=== PATIENT | female | born 1940 | race Caucasian/White ===

== ENCOUNTER → 2016-03-02 | Outpatient (CLI) | payer MEDICARE, BC ==
[~2016-03-02] MED LIST: BIOTIN 800 MCG-1 TAB PO; CELEBREX 200MG200 MG PO; CENTRUM SILVER1 EAC1 PO; DHA PO; HCTZ 25MG25 MG PO; QUALITY CHOICE600 M1 PO; SYNTHROID0.125 MG/T PO; TOVIAZ4 MG PO; VITAMIN D400 UNIT PO; VITAMIN E200 UNI2 PO; ZESTRIL5 M1 PO
== END ==
LOC: LAB 09:35
DX: E55.9 Vitamin D deficiency, unspecified (principal)

== ENCOUNTER → 2016-03-13 | Outpatient (CLI) | payer MEDICARE, BC ==
[2015-07-19 15:14] VITALS: BP 131/64
== END | disposition home or self-care (01) ==
LOC: PT 13:45

== ENCOUNTER → 2016-05-25 | Outpatient (CLI) | payer MEDICARE, BC | LOC: LAB 09:10 | DX: E55.9 Vitamin D deficiency, unspecified (principal) ==

== ENCOUNTER → 2016-07-30 | Outpatient (CLI) | payer MEDICARE, BC ==
[2015-07-19 15:14] VITALS: BP 131/64
== END ==
LOC: CARDREHAB 08:53
DX: G47.33 Obstructive sleep apnea (adult) (pediatric) (principal); R51 Headache; R53.83 Other fatigue; R06.83 Snoring; G47.36 Sleep related hypoventilation in conditions classified elsewhere; E66.9 Obesity, unspecified
CPT/HCPCS: G0399

== ENCOUNTER → 2016-12-17 | Outpatient (CLI) | payer MEDICARE, BC ==
[2015-07-19 15:14] VITALS: BP 131/64
[2016-12-17 14:56] LABS: EOS # 0.3 (0.04-0.40); EOS % 3.4 % (1.0-5.0); HEMATOCRIT 45.7 % (37.0-47.0); HEMOGLOBIN 14.9 g/dL (12.5-16.0); MEAN CELL VOLUME 100 fl (78-100); MEAN CORPUSCULAR HEMOGLOBIN 33 pg (27-31); MEAN CORPUSCULAR HGB CONC 33 g/dL (33-37); MEAN PLATELET VOLUME 10.1 fl (7.4-10.4); MONO # 0.7 (0.20-0.80); NEU # 4.5 (1.40-6.50); PLATELET COUNT 269 K/mm3 (130-400); RED BLOOD COUNT 4.56 M/mm3 (4.10-5.30); RED CELL DISTRIBUTION WIDTH 13.3 % (11.5-14.5); WHITE BLOOD COUNT 7.4 K/mm3 (4.8-10.8)
[2016-12-17 15:40] LABS: ALBUMIN 4.1 g/dL (3.5-5.0); BUN/CREATININE RATIO 26.4 (6.0-26.0); CALCIUM 10.8 mg/dL (8.4-10.2); TOTAL BILIRUBIN 0.8 mg/dL (0.2-1.3); TOTAL PROTEIN 7.2 g/dL (6.3-8.2)
[2016-12-17 16:11] LABS: ERYTHROCYTE SEDIMENTATION RATE 14 mm/hr (0-30)
== END ==
LOC: LAB 14:24
PROVIDERS: Internal Medicine
DX: I10 Essential (primary) hypertension (principal); E78.2 Mixed hyperlipidemia; Z12.11 Encounter for screening for malignant neoplasm of colon; E03.9 Hypothyroidism, unspecified

== ENCOUNTER → 2016-12-21 | Outpatient (CLI) | payer MEDICARE, BC ==
[2015-07-19 15:14] VITALS: BP 131/64
== END ==
LOC: LAB 16:00
DX: Z12.11 Encounter for screening for malignant neoplasm of colon (principal)

== ENCOUNTER → 2017-02-08 | Outpatient (CLI) | payer MEDICARE, BC ==
[2015-07-19 15:14] VITALS: BP 131/64
== END ==
LOC: LAB 10:58
DX: M79.676 Pain in unspecified toe(s) (principal)

== ENCOUNTER 2017-02-23 10:28 | Emergency (ER) | payer MEDICARE, BC ==
[~2017-02-23] VITALS: Ht 157.5 cm; Wt 82.7 kg
[2017-02-23 11:16] LABS: EOS # 0.1 (0.04-0.40); EOS % 0.6 % (1.0-5.0); HEMATOCRIT 49.5 % (37.0-47.0); HEMOGLOBIN 15.9 g/dL (12.5-16.0); LYMPH# 2.7 (1.50-4.00); MEAN CELL VOLUME 97 fl (78-100); MEAN CORPUSCULAR HEMOGLOBIN 31 pg (27-31); MEAN CORPUSCULAR HGB CONC 32 g/dL (33-37); MEAN PLATELET VOLUME 10.5 fl (7.4-10.4); MONO # 0.8 (0.20-0.80); PLATELET COUNT 294 K/mm3 (130-400); RED BLOOD COUNT 5.08 M/mm3 (4.10-5.30); RED CELL DISTRIBUTION WIDTH 13.6 % (11.5-14.5); WHITE BLOOD COUNT 13.7 K/mm3 (4.8-10.8)
[2017-02-23 11:18] LABS: NEU # 10.1 (1.40-6.50)
[2017-02-23 11:30] LABS: ALBUMIN 4.4 g/dL (3.5-5.0); BUN/CREATININE RATIO 33.9 (6.0-26.0); CALCIUM 11.3 mg/dL (8.4-10.2); TOTAL BILIRUBIN 1.2 mg/dL (0.2-1.3); TOTAL PROTEIN 7.9 g/dL (6.3-8.2)
[2017-02-23 13:47] LABS: URINE APPEARANCE HAZY; URINE BILIRUBIN NEGATIVE (NEGATIVE); URINE BLOOD NEGATIVE (NEGATIVE); URINE COLOR YELLOW; URINE GLUCOSE NEGATIVE (NEGATIVE); URINE KETONE 2+ (NEGATIVE); URINE LEUKOCYTE ESTERASE NEGATIVE (NEGATIVE); URINE MUCUS PRESENT (NOT PRESENT); URINE NITRATE NEGATIVE (NEGATIVE); URINE PROTEIN(semi-quant) TRACE mg/dL (NEGATIVE); URINE UROBILINOGEN NORMAL (NORMAL)
[2017-02-23 16:38] VITALS: BP 137/75
[2017-02-23] MEDS ORDERED: ZOFRAN ODT8 M1 PO (16:43)
== END 2017-02-23 16:59 | disposition home or self-care (01) ==
LOC: ED 10:28
PROVIDERS: Physician Assistant
DX: K52.9 Noninfective gastroenteritis and colitis, unspecified (principal); I10 Essential (primary) hypertension; E21.3 Hyperparathyroidism, unspecified; E03.9 Hypothyroidism, unspecified; G47.33 Obstructive sleep apnea (adult) (pediatric); M81.0 Age-related osteoporosis without current pathological fracture; Z88.5 Allergy status to narcotic agent; Z88.2 Allergy status to sulfonamides
CPT/HCPCS: J2405; J2550; J7030; J7040

== ENCOUNTER 2017-05-04 14:00 | Outpatient (RCR) | payer MEDICARE, BC ==
[~2017-05-04 14:00] MED LIST changes: +ZOFRAN ODT8 M1 PO
== END 2017-05-04 14:30 | disposition home or self-care (01) ==
LOC: PT 14:00
DX: M54.2 Cervicalgia (principal); Z88.2 Allergy status to sulfonamides

== ENCOUNTER → 2017-06-21 | Outpatient (CLI) | payer MEDICARE, BC | LOC: RAD 06-14 13:00 | DX: G31.9 Degenerative disease of nervous system, unspecified (principal); I67.82 Cerebral ischemia; Z88.2 Allergy status to sulfonamides | CPT/HCPCS: A9585 ==

== ENCOUNTER → 2017-10-11 | Outpatient (CLI) | payer MEDICARE, BC | LOC: RAD 09:22 | DX: M51.36 Other intervertebral disc degeneration, lumbar region (principal) ==

== ENCOUNTER 2017-10-28 14:00 | Outpatient (RCR) | payer MEDICARE, BC | END 2017-10-28 14:30 | disposition home or self-care (01) | LOC: PT 14:00 | DX: M54.32 Sciatica, left side (principal); M19.90 Unspecified osteoarthritis, unspecified site | CPT/HCPCS: G8978-GP; G8979-GP ==

== ENCOUNTER → 2017-11-09 | Outpatient (CLI) | payer MEDICARE, BC | LOC: MAMMO 14:19 | DX: Z12.31 Encounter for screening mammogram for malignant neoplasm of breast (principal) ==

== ENCOUNTER → 2017-11-25 | Outpatient (CLI) | payer MEDICARE, BC | LOC: RAD 14:57 | DX: M19.011 Primary osteoarthritis, right shoulder (principal) ==

== ENCOUNTER → 2017-12-23 | Outpatient (CLI) | payer MEDICARE, BC ==
[2017-12-23 13:57] LABS: BASO # 0.1 (0.02-0.10); EOS # 0.4 (0.04-0.40); HEMATOCRIT 46.1 % (37.0-47.0); HEMOGLOBIN 14.6 g/dL (12.5-16.0); LYMPH# 2.6 (1.50-4.00); MEAN CELL VOLUME 100 fl (78-100); MEAN CORPUSCULAR HEMOGLOBIN 32 pg (27-31); MEAN CORPUSCULAR HGB CONC 32 g/dL (33-37); MEAN PLATELET VOLUME 10.5 fl (7.4-10.4); MONO # 0.7 (0.20-0.80); PLATELET COUNT 241 K/mm3 (130-400); RED BLOOD COUNT 4.59 M/mm3 (4.10-5.30); RED CELL DISTRIBUTION WIDTH 13.5 % (11.5-14.5); WHITE BLOOD COUNT 7.7 K/mm3 (4.8-10.8)
[2017-12-23 16:03] LABS: ERYTHROCYTE SEDIMENTATION RATE 10 mm/hr (0-30)
[2017-12-23 17:22] LABS: ALBUMIN 4.1 g/dL (3.5-5.0); CALCIUM 10.5 mg/dL (8.4-10.2); POTASSIUM 4.3 mmol/L (3.6-5.0); TOTAL BILIRUBIN 0.6 mg/dL (0.2-1.3); TOTAL PROTEIN 6.9 g/dL (6.3-8.2)
== END ==
LOC: LAB 13:30
PROVIDERS: Internal Medicine
DX: Z12.11 Encounter for screening for malignant neoplasm of colon (principal); I10 Essential (primary) hypertension; E03.9 Hypothyroidism, unspecified; E78.2 Mixed hyperlipidemia

== ENCOUNTER 2017-12-31 13:30 | Outpatient (RCR) | payer MEDICARE, BC | END 2017-12-31 14:00 | disposition home or self-care (01) | LOC: PT 13:30 | DX: M25.511 Pain in right shoulder (principal); W10.1XXD Fall (on)(from) sidewalk curb, subsequent encounter | CPT/HCPCS: G8985-GP ==

== ENCOUNTER 2018-02-03 15:00 | Outpatient (RCR) | payer MEDICARE, BC | END 2018-02-06 | disposition home or self-care (01) | LOC: PT | DX: M50.30 Other cervical disc degeneration, unspecified cervical region (principal); R29.898 Other symptoms and signs involving the musculoskeletal system; M15.9 Polyosteoarthritis, unspecified | CPT/HCPCS: G8981-GP; G8982-GP ==

== ENCOUNTER → 2018-03-17 | Outpatient (CLI) | payer MEDICARE, BC ==
[2018-03-18 00:44] LABS: PTH,INTACT 110.9 pg/mL (6.6-88.9)
[2018-03-18 02:13] LABS: CALCIUM, IONIZED, SERUM 1.44 mmol/L (1.19-1.41)
== END ==
LOC: LAB 13:59
PROVIDERS: Nurse Practitioner Family
DX: E89.0 Postprocedural hypothyroidism (principal); Z90.89 Acquired absence of other organs

== ENCOUNTER → 2018-03-28 | Outpatient (CLI) | payer MEDICARE, BC | LOC: LAB 15:12 | PROVIDERS: Nurse Practitioner Family | DX: Z86.39 Personal history of other endocrine, nutritional and metabolic disease (principal) ==

== ENCOUNTER 2018-07-24 11:01 | Emergency (ER) | payer MEDICARE, BC ==
[2018-07-24] MEDS ORDERED: ASPIR LOW81 MG PO (11:07)
[2018-07-24] MEDS ORDERED: ULTRAM50 M1 PO (11:35)
[2018-07-24] MEDS ORDERED: PREMIERPRO RX5 MG/GM OP (11:35)
[2018-07-24 11:51] VITALS: BP 104/47
== END 2018-07-24 11:43 | disposition home or self-care (01) ==
LOC: ED 11:01
DX: S05.32XA Ocular laceration without prolapse or loss of intraocular tissue, left eye, initial encounter (principal); I10 Essential (primary) hypertension; E07.9 Disorder of thyroid, unspecified; Z79.82 Long term (current) use of aspirin; W45.8XXA Other foreign body or object entering through skin, initial encounter; W22.8XXA Striking against or struck by other objects, initial encounter

== ENCOUNTER → 2018-08-01 | Outpatient (CLI) | payer MEDICARE, BC ==
[2018-07-24 11:51] VITALS: BP 104/47
[~2018-08-01] MED LIST changes: +ASPIR LOW81 MG PO; +PREMIERPRO RX5 MG/GM OP; +ULTRAM50 M1 PO
[2018-08-01 13:30] LABS: BASO # 0.1 (0.02-0.10); EOS # 0.5 (0.04-0.40); HEMATOCRIT 46.6 % (37.0-47.0); HEMOGLOBIN 14.4 g/dL (12.5-16.0); LYMPH# 2.3 (1.50-4.00); MEAN CELL VOLUME 100 fl (78-100); MEAN CORPUSCULAR HEMOGLOBIN 31 pg (27-31); MEAN CORPUSCULAR HGB CONC 31 g/dL (33-37); MEAN PLATELET VOLUME 11.6 fl (7.4-10.4); MONO # 0.7 (0.20-0.80); NEU # 4.9 (1.40-6.50); PLATELET COUNT 247 K/mm3 (130-400); RED BLOOD COUNT 4.65 M/mm3 (4.10-5.30); RED CELL DISTRIBUTION WIDTH 14.5 % (11.5-14.5); WHITE BLOOD COUNT 8.5 K/mm3 (4.8-10.8)
[2018-08-01 14:02] LABS: ALBUMIN 3.8 g/dL (3.4-4.8); CALCIUM 10.3 mg/dL (8.3-10.5); POTASSIUM 4.1 mmol/L (3.5-5.1); TOTAL BILIRUBIN 0.7 mg/dL (0.2-1.2); TOTAL PROTEIN 6.4 g/dL (6.2-8.1)
== END ==
LOC: LAB 07:05
PROVIDERS: Internal Medicine
DX: I10 Essential (primary) hypertension (principal); K90.9 Intestinal malabsorption, unspecified; E03.9 Hypothyroidism, unspecified

== ENCOUNTER → 2018-09-15 | Outpatient (CLI) | payer MEDICARE, BC | LOC: RAD 16:05 | DX: M25.562 Pain in left knee (principal); Z96.652 Presence of left artificial knee joint ==

== ENCOUNTER → 2018-11-15 | Outpatient (CLI) | payer MEDICARE, BC | LOC: MAMMO 13:27 | DX: Z12.31 Encounter for screening mammogram for malignant neoplasm of breast (principal) ==

== ENCOUNTER → 2019-01-06 | Outpatient (CLI) | payer MEDICARE, BC | LOC: RAD 16:01 | DX: M19.072 Primary osteoarthritis, left ankle and foot (principal); Z96.662 Presence of left artificial ankle joint ==

== ENCOUNTER → 2019-02-04 | Outpatient (CLI) | payer MEDICARE, BC | LOC: RAD 09:30 | DX: M85.872 Other specified disorders of bone density and structure, left ankle and foot (principal); S99.922A Unspecified injury of left foot, initial encounter ==

== ENCOUNTER → 2019-02-07 | Outpatient (CLI) | payer MEDICARE, BC ==
[2019-02-07 09:10] LABS: BASO # 0.1 (0.02-0.10); EOS # 0.5 (0.04-0.40); EOS % 6.8 % (1.0-5.0); HEMATOCRIT 45.7 % (37.0-47.0); HEMOGLOBIN 14.5 g/dL (12.5-16.0); LYMPH# 1.9 (1.50-4.00); MEAN CELL VOLUME 100 fl (78-100); MEAN CORPUSCULAR HEMOGLOBIN 32 pg (27-31); MEAN CORPUSCULAR HGB CONC 32 g/dL (33-37); MEAN PLATELET VOLUME 10.1 fl (7.4-10.4); MONO # 0.5 (0.20-0.80); NEU # 3.6 (1.40-6.50); PLATELET COUNT 246 K/mm3 (130-400); RED BLOOD COUNT 4.59 M/mm3 (4.10-5.30); WHITE BLOOD COUNT 6.6 K/mm3 (4.8-10.8)
[2019-02-07 09:19] LABS: POTASSIUM 4.5 mmol/L (3.5-5.1)
[2019-02-07 09:20] LABS: ALBUMIN 4.1 g/dL (3.4-4.8)
[2019-02-07 09:21] LABS: CALCIUM 10.3 mg/dL (8.3-10.5)
[2019-02-07 09:22] LABS: TOTAL PROTEIN 6.9 g/dL (6.2-8.1)
[2019-02-07 09:24] LABS: TOTAL BILIRUBIN 0.8 mg/dL (0.2-1.2)
== END ==
LOC: LAB 08:54
PROVIDERS: Internal Medicine
DX: K90.9 Intestinal malabsorption, unspecified (principal); I10 Essential (primary) hypertension; E78.2 Mixed hyperlipidemia; E03.9 Hypothyroidism, unspecified

== ENCOUNTER → 2019-02-16 | Outpatient (CLI) | payer MEDICARE, BC | LOC: RAD 15:28 | DX: M48.07 Spinal stenosis, lumbosacral region (principal); M51.16 Intervertebral disc disorders with radiculopathy, lumbar region ==

== ENCOUNTER 2019-04-19 16:00 | Outpatient (RCR) | payer MEDICARE, BC | END 2019-04-19 16:30 | disposition still patient (30) | LOC: PT 16:00 | DX: M48.061 Spinal stenosis, lumbar region without neurogenic claudication (principal); M54.16 Radiculopathy, lumbar region ==

== ENCOUNTER → 2019-05-08 | Outpatient (CLI) | payer MEDICARE, BC ==
[2019-05-08 15:43] LABS: PH-URINE 5.5 (5.0 - 8.0); URINE APPEARANCE HAZY; URINE BILIRUBIN NEGATIVE (NEGATIVE); URINE BLOOD TRACE (NEGATIVE); URINE COLOR YELLOW; URINE GLUCOSE NEGATIVE (NEGATIVE); URINE KETONE NEGATIVE (NEGATIVE); URINE LEUKOCYTE ESTERASE TRACE (NEGATIVE); URINE NITRATE NEGATIVE (NEGATIVE); URINE PROTEIN(semi-quant) NEGATIVE (NEGATIVE); URINE UROBILINOGEN NORMAL (NORMAL)
== END ==
LOC: LAB 14:48
PROVIDERS: Internal Medicine
DX: N30.00 Acute cystitis without hematuria (principal)

== ENCOUNTER → 2019-08-08 | Outpatient (CLI) | payer MEDICARE, BC ==
[2019-08-08 14:51] LABS: EOS # 0.4 (0.04-0.40); EOS % 5.9 % (1.0-5.0); HEMATOCRIT 45.4 % (37.0-47.0); HEMOGLOBIN 14.6 g/dL (12.5-16.0); LYMPH# 2.2 (1.50-4.00); MEAN CELL VOLUME 99 fl (78-100); MEAN CORPUSCULAR HEMOGLOBIN 32 pg (27-31); MEAN CORPUSCULAR HGB CONC 32 g/dL (33-37); MEAN PLATELET VOLUME 10.3 fl (7.4-10.4); MONO # 0.6 (0.20-0.80); NEU # 3.7 (1.40-6.50); PLATELET COUNT 219 K/mm3 (130-400); RED BLOOD COUNT 4.57 M/mm3 (4.10-5.30); RED CELL DISTRIBUTION WIDTH 13.4 % (11.5-14.5); WHITE BLOOD COUNT 6.9 K/mm3 (4.8-10.8)
[2019-08-08 15:06] LABS: ALBUMIN 4.3 g/dL (3.4-4.8); POTASSIUM 4.5 mmol/L (3.5-5.1)
[2019-08-08 15:07] LABS: CALCIUM 10.7 mg/dL (8.3-10.5)
[2019-08-08 15:09] LABS: TOTAL PROTEIN 7.1 g/dL (6.2-8.1)
[2019-08-08 15:10] LABS: TOTAL BILIRUBIN 0.7 mg/dL (0.2-1.2)
== END ==
LOC: LAB 14:09
PROVIDERS: Internal Medicine
DX: K90.9 Intestinal malabsorption, unspecified (principal); I10 Essential (primary) hypertension; E78.2 Mixed hyperlipidemia; E03.9 Hypothyroidism, unspecified

== ENCOUNTER → 2019-08-25 | Outpatient (CLI) | payer MEDICARE, BC | LOC: RAD 13:23 | DX: M50.30 Other cervical disc degeneration, unspecified cervical region (principal) ==

== ENCOUNTER → 2019-09-01 | Outpatient (CLI) | payer MEDICARE, BC ==
[2019-09-01 08:49] LABS: POTASSIUM 4.7 mmol/L (3.5-5.1)
[2019-09-01 08:50] LABS: CALCIUM 10.5 mg/dL (8.3-10.5)
== END ==
LOC: LAB 08:28
PROVIDERS: Internal Medicine
DX: M47.812 Spondylosis without myelopathy or radiculopathy, cervical region (principal); M27.2 Inflammatory conditions of jaws
CPT/HCPCS: Q9967

== ENCOUNTER → 2019-09-07 | Outpatient (CLI) | payer MEDICARE, BC | LOC: RAD 07:43 | DX: M50.30 Other cervical disc degeneration, unspecified cervical region (principal); M48.02 Spinal stenosis, cervical region ==

== ENCOUNTER → 2019-09-26 15:00 | Outpatient (RCR) | payer MEDICARE, BC | END | disposition still patient (30) | LOC: PT 09-11 13:48 | DX: M48.02 Spinal stenosis, cervical region (principal); M50.122 Cervical disc disorder at C5-C6 level with radiculopathy; M54.81 Occipital neuralgia ==

== ENCOUNTER → 2019-11-14 | Outpatient (CLI) | payer MEDICARE, BC | LOC: LAB 12:08 | DX: I10 Essential (primary) hypertension (principal); E03.9 Hypothyroidism, unspecified ==

== ENCOUNTER → 2019-11-22 | Outpatient (CLI) | payer MEDICARE, BC | LOC: MAMMO 10:00 | DX: Z12.31 Encounter for screening mammogram for malignant neoplasm of breast (principal) ==

== ENCOUNTER → 2020-03-12 | Outpatient (CLI) | payer MEDICARE, BC ==
[2020-01-14 15:15] VITALS: BP 116/65
[~2020-03-12] MED LIST changes: +AMOXICILLIN AND1 TA2 PO; +FISH OIL CONCE1 EACH PO; +LEVOTHYROXINE100 MC1 PO; +VITAMIN B COMPL1 SGL PO; +VITAMIN D375 MCG PO
[2020-03-12 08:28] LABS: CALCIUM 10.2 mg/dL (8.3-10.5)
== END ==
LOC: RAD 07:53 → LAB 07:53 → RAD 09:00
PROVIDERS: Internal Medicine
DX: E83.52 Hypercalcemia (principal); R51.9 Headache, unspecified
CPT/HCPCS: Q9967

== ENCOUNTER → 2020-04-12 | Outpatient (CLI) | payer MEDICARE, BC ==
[2020-01-14 15:15] VITALS: BP 116/65
[~2020-04-12] MED LIST changes: +ACETAMINOPHEN500 M5 PO; +ADULT ASPIRIN R81 MG PO; +BIOTIN1000 MC1 PO; +MIRALAX17 GM PO; +NATURE'S BLEND400 IU PO; +NORCO 325 MG-51 TA1 PO; +TYMLOS1.56 ML SQ; +VITAMIN B122500 MC1 PO; +VITAMIN C500 M7 PO; +VITAMIN D325 MC8 PO; +VITAMIN E200 UNIT PO; +ZOFRAN ODT4 MG PO
[2020-04-12 15:54] LABS: EOS # 0.3 (0.04-0.40); EOS % 4.2 % (1.0-5.0); HEMATOCRIT 43.8 % (37.0-47.0); HEMOGLOBIN 13.5 g/dL (12.5-16.0); LYMPH# 2.5 (1.50-4.00); MEAN CELL VOLUME 101 fl (78-100); MEAN CORPUSCULAR HEMOGLOBIN 31 pg (27-31); MEAN CORPUSCULAR HGB CONC 31 g/dL (33-37); MEAN PLATELET VOLUME 9.7 fl (7.4-10.4); MONO # 0.6 (0.20-0.80); NEU # 3.5 (1.40-6.50); PLATELET COUNT 247 K/mm3 (130-400); RED BLOOD COUNT 4.36 M/mm3 (4.10-5.30); RED CELL DISTRIBUTION WIDTH 13.5 % (11.5-14.5); WHITE BLOOD COUNT 6.9 K/mm3 (4.8-10.8)
[2020-04-12 16:08] LABS: ALBUMIN 3.9 g/dL (3.4-4.8); POTASSIUM 4.1 mmol/L (3.5-5.1)
[2020-04-12 16:09] LABS: CALCIUM 10.2 mg/dL (8.3-10.5)
[2020-04-12 16:11] LABS: TOTAL PROTEIN 6.6 g/dL (6.2-8.1)
[2020-04-12 16:12] LABS: TOTAL BILIRUBIN 0.6 mg/dL (0.2-1.2)
[2020-04-13 19:27] LABS: PTH,INTACT 74.2 pg/mL (6.6-88.9)
== END ==
LOC: LAB 15:43
PROVIDERS: Internal Medicine
DX: I10 Essential (primary) hypertension (principal); E78.2 Mixed hyperlipidemia; E03.9 Hypothyroidism, unspecified; M81.0 Age-related osteoporosis without current pathological fracture; E21.0 Primary hyperparathyroidism

== ENCOUNTER 2020-05-15 15:02 | Emergency (ER) | payer MEDICARE, BC ==
[~2020-05-15 15:02] MED LIST changes: -ACETAMINOPHEN500 M5 PO; -ADULT ASPIRIN R81 MG PO; -BIOTIN1000 MC1 PO; -MIRALAX17 GM PO; -NATURE'S BLEND400 IU PO; -NORCO 325 MG-51 TA1 PO; -TYMLOS1.56 ML SQ; -VITAMIN B122500 MC1 PO; -VITAMIN C500 M7 PO; -VITAMIN D325 MC8 PO; -VITAMIN E200 UNIT PO; -ZOFRAN ODT4 MG PO
[2020-05-15] MEDS ORDERED: TYMLOS1.56 ML SQ (15:24)
[2020-05-15 15:33] LABS: EOS # 0.3 (0.04-0.40); EOS % 4.3 % (1.0-5.0); HEMATOCRIT 44.2 % (37.0-47.0); HEMOGLOBIN 14.1 g/dL (12.5-16.0); LYMPH# 2.6 (1.50-4.00); MEAN CELL VOLUME 99 fl (78-100); MEAN CORPUSCULAR HEMOGLOBIN 32 pg (27-31); MEAN CORPUSCULAR HGB CONC 32 g/dL (33-37); MONO # 0.5 (0.20-0.80); NEU # 2.9 (1.40-6.50); PLATELET COUNT 236 K/mm3 (130-400); RED BLOOD COUNT 4.47 M/mm3 (4.10-5.30); RED CELL DISTRIBUTION WIDTH 13.6 % (11.5-14.5); WHITE BLOOD COUNT 6.3 K/mm3 (4.8-10.8)
[2020-05-15 15:42] LABS: ALBUMIN 4.1 g/dL (3.4-4.8)
[2020-05-15 15:43] LABS: SODIUM 142 mmol/L (136-145)
[2020-05-15 15:44] LABS: CALCIUM 10.5 mg/dL (8.3-10.5)
[2020-05-15 15:45] LABS: GLUCOSE 83 mg/dL (65-105); TOTAL PROTEIN 6.9 g/dL (6.2-8.1)
[2020-05-15 15:46] LABS: CARBON DIOXIDE 26 mmol/L (23-31)
[2020-05-15 15:47] LABS: TOTAL BILIRUBIN 0.4 mg/dL (0.2-1.2)
[2020-05-15 15:50] LABS: AST-SGOT 21 U/L (5-34)
[2020-05-15 15:51] LABS: ALT/SGPT 15 U/L (0-55)
[2020-05-15 16:04] LABS: TROPONIN-I < 0.03 ng/mL (<0.030)
[2020-05-15 17:35] VITALS: BP 154/68
== END 2020-05-15 17:35 | disposition home or self-care (01) ==
LOC: ED 15:02
PROVIDERS: Nurse Practitioner
DX: M79.10 Myalgia, unspecified site (principal); I10 Essential (primary) hypertension; Z88.2 Allergy status to sulfonamides; Z88.6 Allergy status to analgesic agent

== ENCOUNTER 2020-07-07 04:45 | Emergency (ER) | payer MEDICARE, BC ==
[~2020-07-07 04:45] MED LIST changes: +TYMLOS1.56 ML SQ
[2020-07-07] MEDS ORDERED: ACETAMINOPHEN500 M5 PO (05:19)
[2020-07-07] MEDS ORDERED: VITAMIN C500 M7 PO (05:19)
[2020-07-07] MEDS ORDERED: ADULT ASPIRIN R81 MG PO (05:20)
[2020-07-07] MEDS ORDERED: BIOTIN1000 MC1 PO (05:20)
[2020-07-07] MEDS ORDERED: NORCO 325 MG-51 TA1 PO (05:22)
[2020-07-07] MEDS ORDERED: ZOFRAN ODT4 MG PO (05:23)
[2020-07-07] MEDS ORDERED: MIRALAX17 GM PO (05:23)
[2020-07-07] MEDS ORDERED: VITAMIN B122500 MC1 PO (05:24)
[2020-07-07] MEDS ORDERED: VITAMIN D325 MC8 PO (05:25)
[2020-07-07] MEDS ORDERED: NATURE'S BLEND400 IU PO (05:25)
[2020-07-07] MEDS ORDERED: VITAMIN E200 UNIT PO (05:26)
[2020-07-07 05:38] LABS: BASO # 0.05 (0.02-0.10); EOS # 0.47 (0.04-0.40); EOS % 6.4 % (1.0-5.0); HEMATOCRIT 42.7 % (37.0-47.0); HEMOGLOBIN 13.8 g/dL (12.5-16.0); LYMPH# 2.37 (1.50-4.00); MEAN CELL VOLUME 99 fl (78-100); MEAN CORPUSCULAR HEMOGLOBIN 32 pg (27-31); MEAN CORPUSCULAR HGB CONC 32 g/dL (33-37); MEAN PLATELET VOLUME 10.4 fl (7.4-10.4); MONO # 0.52 (0.20-0.80); NEU # 3.93 (1.40-6.50); PLATELET COUNT 202 K/mm3 (130-400); RED BLOOD COUNT 4.31 M/mm3 (4.10-5.30); RED CELL DISTRIBUTION WIDTH 13.8 % (11.5-14.5); WHITE BLOOD COUNT 7.4 K/mm3 (4.8-10.8)
[2020-07-07 05:43] LABS: CALCIUM 8.3 mg/dL (8.3-10.5)
[2020-07-07 08:04] VITALS: BP 138/74
== END 2020-07-07 08:00 | disposition home or self-care (01) ==
LOC: ED 04:45
PROVIDERS: Physician Assistant
DX: R06.02 Shortness of breath (principal); I10 Essential (primary) hypertension; E03.9 Hypothyroidism, unspecified; Z88.1 Allergy status to other antibiotic agents; Z88.2 Allergy status to sulfonamides; Z88.5 Allergy status to narcotic agent; Z88.8 Allergy status to other drugs, medicaments and biological substances; Z79.890 Hormone replacement therapy; Z79.899 Other long term (current) drug therapy
CPT/HCPCS: Q9967

== ENCOUNTER → 2020-07-09 | Outpatient (CLI) | payer MEDICARE, BC ==
[2020-07-07 08:04] VITALS: BP 138/74
[~2020-07-09] MED LIST changes: +ACETAMINOPHEN500 M5 PO; +ADULT ASPIRIN R81 MG PO; +BIOTIN1000 MC1 PO; +MIRALAX17 GM PO; +NATURE'S BLEND400 IU PO; +NORCO 325 MG-51 TA1 PO; +VITAMIN B122500 MC1 PO; +VITAMIN C500 M7 PO; +VITAMIN D325 MC8 PO; +VITAMIN E200 UNIT PO; +ZOFRAN ODT4 MG PO
== END ==
LOC: LAB 14:11
DX: E21.0 Primary hyperparathyroidism (principal)

== ENCOUNTER → 2020-07-26 | Outpatient (CLI) | payer MEDICARE, BC ==
[2020-07-07 08:04] VITALS: BP 138/74
[2020-07-26 11:04] LABS: BASO # 0.07 (0.02-0.10); EOS % 4.6 % (1.0-5.0); HEMATOCRIT 44.6 % (37.0-47.0); HEMOGLOBIN 14.2 g/dL (12.5-16.0); LYMPH# 2.54 (1.50-4.00); MEAN CELL VOLUME 100 fl (78-100); MEAN CORPUSCULAR HEMOGLOBIN 32 pg (27-31); MEAN CORPUSCULAR HGB CONC 32 g/dL (33-37); MEAN PLATELET VOLUME 9.8 fl (7.4-10.4); MONO # 0.56 (0.20-0.80); NEU # 5.06 (1.40-6.50); PLATELET COUNT 232 K/mm3 (130-400); RED BLOOD COUNT 4.47 M/mm3 (4.10-5.30); RED CELL DISTRIBUTION WIDTH 13.4 % (11.5-14.5); WHITE BLOOD COUNT 8.7 K/mm3 (4.8-10.8)
[2020-07-26 11:44] LABS: POTASSIUM 4.4 mmol/L (3.5-5.1)
[2020-07-26 11:45] LABS: CALCIUM 9.2 mg/dL (8.3-10.5)
[2020-07-26 11:46] LABS: TOTAL PROTEIN 6.9 g/dL (6.2-8.1)
[2020-07-26 11:48] LABS: TOTAL BILIRUBIN 0.6 mg/dL (0.2-1.2)
== END ==
LOC: LAB 10:51
PROVIDERS: Internal Medicine
DX: E21.0 Primary hyperparathyroidism (principal)

== ENCOUNTER → 2020-10-01 | Outpatient (CLI) | payer MEDICARE, BC | LOC: LAB 13:44 | DX: E03.9 Hypothyroidism, unspecified (principal) ==

== ENCOUNTER → 2020-10-21 | Outpatient (CLI) | payer MEDICARE, BC ==
[2020-10-21 16:10] LABS: BASO # 0.07 (0.02-0.10); EOS # 0.29 (0.04-0.40); EOS % 3.6 % (1.0-5.0); HEMATOCRIT 45.8 % (37.0-47.0); HEMOGLOBIN 14.5 g/dL (12.5-16.0); MEAN CELL VOLUME 100 fl (78-100); MEAN CORPUSCULAR HEMOGLOBIN 32 pg (27-31); MEAN CORPUSCULAR HGB CONC 32 g/dL (33-37); MEAN PLATELET VOLUME 9.8 fl (7.4-10.4); NEU # 4.61 (1.40-6.50); PLATELET COUNT 264 K/mm3 (130-400); RED BLOOD COUNT 4.56 M/mm3 (4.10-5.30); RED CELL DISTRIBUTION WIDTH 13.4 % (11.5-14.5); WHITE BLOOD COUNT 8.1 K/mm3 (4.8-10.8)
[2020-10-21 16:19] LABS: ALBUMIN 4.1 g/dL (3.4-4.8); POTASSIUM 4.2 mmol/L (3.5-5.1)
[2020-10-21 16:22] LABS: TOTAL PROTEIN 7.1 g/dL (6.2-8.1)
[2020-10-21 16:24] LABS: TOTAL BILIRUBIN 0.8 mg/dL (0.2-1.2)
[2020-10-21 16:28] LABS: MAGNESIUM 1.91 mg/dL (1.60-2.60)
[2020-10-21 17:45] LABS: ERYTHROCYTE SEDIMENTATION RATE 25 mm/hr (0-30)
== END ==
LOC: LAB 15:55
PROVIDERS: Internal Medicine
DX: I47.1 Supraventricular tachycardia (principal)

== ENCOUNTER 2020-10-31 13:48 | Outpatient (RCR) | payer MEDICARE, BC | END 2021-01-29 | disposition home or self-care (01) | LOC: PT | DX: M76.31 Iliotibial band syndrome, right leg (principal) ==

== ENCOUNTER → 2020-11-04 | Outpatient (CLI) | payer MEDICARE, BC | LOC: AMSURD 15:44 | DX: I47.1 Supraventricular tachycardia (principal) ==

== ENCOUNTER → 2021-01-10 | Outpatient (CLI) | payer MEDICARE, BC ==
[2021-01-10 08:25] LABS: ALBUMIN 3.9 g/dL (3.4-4.8); POTASSIUM 4.2 mmol/L (3.5-5.1)
[2021-01-10 08:26] LABS: CALCIUM 9.1 mg/dL (8.3-10.5)
[2021-01-10 08:28] LABS: TOTAL PROTEIN 6.3 g/dL (6.2-8.1)
[2021-01-10 08:29] LABS: TOTAL BILIRUBIN 0.7 mg/dL (0.2-1.2)
[2021-01-10 16:23] LABS: PTH,INTACT 53.2 pg/mL (6.6-88.9)
[2021-01-13 16:24] LABS: CALCIUM, IONIZED, SERUM 1.37 mmol/L (1.19-1.41)
== END ==
LOC: LAB 07:57
PROVIDERS: Internal Medicine
DX: M81.0 Age-related osteoporosis without current pathological fracture (principal); E83.52 Hypercalcemia

== ENCOUNTER 2021-02-13 14:11 | Outpatient (RCR) | payer MEDICARE, BC ==
[~2021-02-13] VITALS: Ht 157.5 cm; Wt 81.8 kg
[2021-02-13 14:25] VITALS: BP 120/78
[2021-02-13] MEDS ORDERED: CALCIUM500 M1 PO (14:34)
== END 2021-03-24 | disposition home or self-care (01) ==
LOC: AMSURD
DX: Z51.81 Encounter for therapeutic drug level monitoring (principal)
CPT/HCPCS: J0897

== ENCOUNTER → 2021-03-14 | Outpatient (CLI) | payer MEDICARE, BC ==
[~2021-03-14] MED LIST changes: +CALCIUM500 M1 PO
[2021-03-14 10:18] LABS: POTASSIUM 3.8 mmol/L (3.5-5.1)
[2021-03-14 10:19] LABS: CALCIUM 9.4 mg/dL (8.3-10.5)
[2021-03-14 10:21] LABS: TOTAL PROTEIN 6.3 g/dL (6.2-8.1)
== END ==
LOC: LAB 08:28
PROVIDERS: Internal Medicine
DX: I10 Essential (primary) hypertension (principal); E78.2 Mixed hyperlipidemia; E03.9 Hypothyroidism, unspecified

== ENCOUNTER 2021-03-31 09:48 | Emergency (ER) | payer MEDICARE, BC ==
[~2021-03-31] VITALS: Ht 157.5 cm; Wt 85.0 kg
[2021-03-31 10:58] LABS: ALBUMIN 4.5 g/dL (3.4-4.8); POTASSIUM 4.6 mmol/L (3.5-5.1)
[2021-03-31 11:00] LABS: CALCIUM 9.8 mg/dL (8.3-10.5)
[2021-03-31 11:01] LABS: TOTAL PROTEIN 7.4 g/dL (6.2-8.1)
[2021-03-31 11:03] LABS: TOTAL BILIRUBIN 0.7 mg/dL (0.2-1.2)
[2021-03-31 11:09] LABS: BASO # 0.06 K/mm3 (0.02-0.10); EOS # 0.23 K/mm3 (0.04-0.40); EOS % 2.9 % (1.0-5.0); HEMATOCRIT 49.5 % (37.0-47.0); HEMOGLOBIN 15.9 g/dL (12.5-16.0); LYMPH# 2.01 K/mm3 (1.50-4.00); MEAN CELL VOLUME 102 fl (78-100); MEAN CORPUSCULAR HEMOGLOBIN 33 pg (27-31); MEAN CORPUSCULAR HGB CONC 32 g/dL (33-37); MEAN PLATELET VOLUME 10.5 fl (7.4-10.4); MONO # 0.56 K/mm3 (0.20-0.80); NEU # 5.02 K/mm3 (1.40-6.50); PLATELET COUNT 195 K/mm3 (130-400); RED BLOOD COUNT 4.87 M/mm3 (4.10-5.30); RED CELL DISTRIBUTION WIDTH 12.5 % (11.5-14.5); WHITE BLOOD COUNT 7.9 K/mm3 (4.8-10.8)
[2021-03-31 12:26] LABS: PH-URINE 6.5 (5.0 - 8.0); URINE APPEARANCE CLEAR; URINE COLOR YELLOW
[2021-03-31 12:27] LABS: URINE BILIRUBIN NEGATIVE (NEGATIVE); URINE BLOOD NEGATIVE (NEGATIVE); URINE GLUCOSE NEGATIVE (NEGATIVE); URINE KETONE NEGATIVE (NEGATIVE); URINE LEUKOCYTE ESTERASE NEGATIVE (NEGATIVE); URINE NITRATE NEGATIVE (NEGATIVE); URINE PROTEIN(semi-quant) TRACE (NEGATIVE); URINE UROBILINOGEN NORMAL (NORMAL); URINE WBC 0-1 /hpf (0-3)
[2021-03-31] MEDS ORDERED: HYDROCORTISON28.4 GM TP (12:29)
[2021-03-31] MEDS ORDERED: IBU800 M1 PO (12:30)
[2021-03-31] MEDS ORDERED: MUPIROCIN2% TP (12:31)
[2021-03-31] MEDS ORDERED: LEVOTHYROXINE125 MCG PO (12:31)
[2021-03-31] MEDS ORDERED: OMEGA 3 1,0001 EACH PO (12:33)
[2021-03-31] MEDS ORDERED: PREDNISONE20 M1 PO (12:34)
[2021-03-31] MEDS ORDERED: PROLIA60 MG/ML SC (12:35)
[2021-03-31 13:28] LABS: PARTIAL THROMBOPLASTIN TIME 24.8 SECONDS (21.0-32.0); PROTHROMBIN TIME 9.9 SECONDS (9.0-12.0)
[2021-03-31 15:55] VITALS: BP 156/62
== END 2021-03-31 15:55 | disposition short-term general hospital (02) ==
LOC: ED 09:48
PROVIDERS: Nurse Practitioner
DX: I10 Essential (primary) hypertension (principal); M54.2 Cervicalgia; R79.89 Other specified abnormal findings of blood chemistry; E03.9 Hypothyroidism, unspecified; F32.9 Major depressive disorder, single episode, unspecified; E21.3 Hyperparathyroidism, unspecified; Z20.822 Contact with and (suspected) exposure to COVID-19; Z87.891 Personal history of nicotine dependence; Z79.890 Hormone replacement therapy; Z79.899 Other long term (current) drug therapy

== ENCOUNTER → 2021-04-11 | Outpatient (CLI) | payer MEDICARE, BC ==
[~2021-04-11] MED LIST changes: +HYDROCORTISON28.4 GM TP; +IBU800 M1 PO; +LEVOTHYROXINE125 MCG PO; +MUPIROCIN2% TP; +OMEGA 3 1,0001 EACH PO; +PREDNISONE20 M1 PO; +PROLIA60 MG/ML SC
== END ==
LOC: CARDREHAB 07:53
DX: R77.8 Other specified abnormalities of plasma proteins (principal)
CPT/HCPCS: A9500

== ENCOUNTER 2021-04-28 08:51 | Outpatient (RCR) | payer MEDICARE, BC | END 2021-05-22 | disposition home or self-care (01) | LOC: PT | DX: S16.1XXA Strain of muscle, fascia and tendon at neck level, initial encounter (principal) ==

== ENCOUNTER → 2021-05-05 | Outpatient (CLI) | payer MEDICARE, BC | LOC: RAD 12:00 | DX: M50.122 Cervical disc disorder at C5-C6 level with radiculopathy (principal) ==

== ENCOUNTER 2021-06-06 14:15 | Outpatient (RCR) | payer MEDICARE, BC | END 2021-06-21 | disposition home or self-care (01) | LOC: PT | DX: S16.1XXD Strain of muscle, fascia and tendon at neck level, subsequent encounter (principal); X58.XXXD Exposure to other specified factors, subsequent encounter ==

== ENCOUNTER → 2021-06-12 | Outpatient (CLI) | payer MEDICARE, BC ==
[2021-06-12 13:28] LABS: ALBUMIN 4.2 g/dL (3.4-4.8)
[2021-06-12 13:29] LABS: POTASSIUM 4.1 mmol/L (3.5-5.1)
[2021-06-12 13:30] LABS: CALCIUM 10.1 mg/dL (8.3-10.5)
[2021-06-12 13:31] LABS: TOTAL PROTEIN 6.8 g/dL (6.2-8.1)
[2021-06-12 13:33] LABS: TOTAL BILIRUBIN 0.8 mg/dL (0.2-1.2)
[2021-06-12 14:54] LABS: BASO # 0.07 K/mm3 (0.02-0.10); EOS % 3.7 % (1.0-5.0); HEMATOCRIT 44.4 % (37.0-47.0); HEMOGLOBIN 14.2 g/dL (12.5-16.0); LYMPH# 2.83 K/mm3 (1.50-4.00); MEAN CELL VOLUME 100 fl (78-100); MEAN CORPUSCULAR HEMOGLOBIN 32 pg (27-31); MEAN CORPUSCULAR HGB CONC 32 g/dL (33-37); MEAN PLATELET VOLUME 10.4 fl (7.4-10.4); MONO # 0.64 K/mm3 (0.20-0.80); NEU # 4.31 K/mm3 (1.40-6.50); PLATELET COUNT 270 K/mm3 (130-400); RED BLOOD COUNT 4.45 M/mm3 (4.10-5.30); RED CELL DISTRIBUTION WIDTH 14.1 % (11.5-14.5); WHITE BLOOD COUNT 8.2 K/mm3 (4.8-10.8)
[2021-06-12 23:08] LABS: PTH,INTACT 40.7 pg/mL (6.6-88.9); T3 FREE 2.4 pg/mL (1.7-3.7)
[2021-06-13 00:29] LABS: CALCIUM, IONIZED, SERUM 1.39 mmol/L (1.19-1.41)
== END ==
LOC: LAB 12:48
PROVIDERS: Internal Medicine
DX: I10 Essential (primary) hypertension (principal); E03.9 Hypothyroidism, unspecified; E21.0 Primary hyperparathyroidism; M81.0 Age-related osteoporosis without current pathological fracture

== ENCOUNTER → 2021-09-03 | Outpatient (CLI) | payer MEDICARE, BC | LOC: RAD 15:38 → MAMMO 16:00 | DX: M81.0 Age-related osteoporosis without current pathological fracture (principal) ==

== ENCOUNTER → 2021-09-04 | Outpatient (CLI) | payer MEDICARE, BC | LOC: AMSURD 09-03 14:13 | DX: M81.0 Age-related osteoporosis without current pathological fracture (principal) | CPT/HCPCS: J0897 ==

== ENCOUNTER → 2021-09-23 | Outpatient (CLI) | payer MEDICARE, BC ==
[2021-09-23 10:47] LABS: ALBUMIN 4.1 g/dL (3.4-4.8); POTASSIUM 4.2 mmol/L (3.5-5.1)
[2021-09-23 10:48] LABS: CALCIUM 9.4 mg/dL (8.3-10.5)
[2021-09-23 10:50] LABS: TOTAL PROTEIN 6.4 g/dL (6.2-8.1)
[2021-09-23 10:51] LABS: TOTAL BILIRUBIN 0.9 mg/dL (0.2-1.2)
== END ==
LOC: LAB 10:24
PROVIDERS: Internal Medicine
DX: E03.9 Hypothyroidism, unspecified (principal); I10 Essential (primary) hypertension; R73.9 Hyperglycemia, unspecified

== ENCOUNTER → 2021-10-03 | Outpatient (CLI) | payer MEDICARE, BC ==
[2021-10-03 15:07] LABS: ALBUMIN 4.1 g/dL (3.4-4.8)
[2021-10-03 15:08] LABS: POTASSIUM 4.2 mmol/L (3.5-5.1)
[2021-10-03 15:09] LABS: CALCIUM 9.3 mg/dL (8.3-10.5)
[2021-10-03 15:10] LABS: TOTAL PROTEIN 6.6 g/dL (6.2-8.1)
[2021-10-03 15:12] LABS: TOTAL BILIRUBIN 0.5 mg/dL (0.2-1.2)
[2021-10-03 15:48] LABS: HEMATOCRIT 42.6 % (37.0-47.0); HEMOGLOBIN 13.6 g/dL (12.5-16.0); MEAN PLATELET VOLUME 10.7 fl (7.4-10.4); RED BLOOD COUNT 4.2 M/mm3 (4.10-5.30); RED CELL DISTRIBUTION WIDTH 13.6 % (11.5-14.5); WHITE BLOOD COUNT 7.6 K/mm3 (4.8-10.8)
[2021-10-04 00:29] LABS: PTH,INTACT 56.9 pg/mL (6.6-88.9)
== END ==
LOC: LAB 14:37
PROVIDERS: Internal Medicine
DX: M48.062 Spinal stenosis, lumbar region with neurogenic claudication (principal); M43.16 Spondylolisthesis, lumbar region; M43.17 Spondylolisthesis, lumbosacral region; M85.851 Other specified disorders of bone density and structure, right thigh; M85.852 Other specified disorders of bone density and structure, left thigh; R94.6 Abnormal results of thyroid function studies

== ENCOUNTER → 2021-10-06 | Outpatient (CLI) | payer MEDICARE, BC | LOC: RAD 10:11 | DX: M19.012 Primary osteoarthritis, left shoulder (principal); M77.8 Other enthesopathies, not elsewhere classified; R07.81 Pleurodynia; M25.562 Pain in left knee; W19.XXXA Unspecified fall, initial encounter ==

== ENCOUNTER → 2021-10-14 | Outpatient (CLI) | payer MEDICARE, BC | LOC: RAD 08:51 | DX: S29.9XXA Unspecified injury of thorax, initial encounter (principal); X58.XXXA Exposure to other specified factors, initial encounter ==

== ENCOUNTER → 2021-10-24 | Outpatient (CLI) | payer MEDICARE, BC | LOC: LAB 07:20 | DX: E78.5 Hyperlipidemia, unspecified (principal) ==

== ENCOUNTER → 2021-11-10 | Outpatient (CLI) | payer MEDICARE, BC ==
[2021-11-10 15:26] LABS: BASO # 0.05 K/mm3 (0.02-0.10); EOS # 0.21 K/mm3 (0.04-0.40); EOS % 2.3 % (1.0-5.0); HEMATOCRIT 45.6 % (37.0-47.0); HEMOGLOBIN 14.5 g/dL (12.5-16.0); LYMPH# 2.34 K/mm3 (1.50-4.00); MEAN CELL VOLUME 102 fl (78-100); MEAN CORPUSCULAR HEMOGLOBIN 32 pg (27-31); MEAN CORPUSCULAR HGB CONC 32 g/dL (33-37); MEAN PLATELET VOLUME 9.7 fl (7.4-10.4); MONO # 0.65 K/mm3 (0.20-0.80); NEU # 5.75 K/mm3 (1.40-6.50); PLATELET COUNT 240 K/mm3 (130-400); RED BLOOD COUNT 4.48 M/mm3 (4.10-5.30); RED CELL DISTRIBUTION WIDTH 13.9 % (11.5-14.5)
[2021-11-10 15:34] LABS: ALBUMIN 4.1 g/dL (3.4-4.8)
[2021-11-10 15:36] LABS: CALCIUM 9.2 mg/dL (8.3-10.5)
[2021-11-10 15:37] LABS: TOTAL PROTEIN 6.7 g/dL (6.2-8.1)
[2021-11-10 15:39] LABS: TOTAL BILIRUBIN 0.5 mg/dL (0.2-1.2)
[2021-11-10 15:44] LABS: MAGNESIUM 2.05 mg/dL (1.60-2.60)
[2021-11-10 16:15] LABS: URINE APPEARANCE CLEAR; URINE COLOR YELLOW
[2021-11-10 16:16] LABS: URINE BILIRUBIN NEGATIVE (NEGATIVE); URINE BLOOD NEGATIVE (NEGATIVE); URINE GLUCOSE NEGATIVE (NEGATIVE); URINE KETONE NEGATIVE (NEGATIVE); URINE LEUKOCYTE ESTERASE 1+ (NEGATIVE); URINE NITRATE NEGATIVE (NEGATIVE); URINE PROTEIN(semi-quant) NEGATIVE (NEGATIVE); URINE UROBILINOGEN NORMAL (NORMAL)
== END ==
LOC: LAB 15:06
PROVIDERS: Internal Medicine
DX: Z01.812 Encounter for preprocedural laboratory examination (principal); Z01.810 Encounter for preprocedural cardiovascular examination

== ENCOUNTER → 2021-11-19 | Day surgery (SDC) | payer MEDICARE, BC | LOC: MSO 07:16 | DX: H25.12 Age-related nuclear cataract, left eye (principal) | CPT/HCPCS: 00142; J0171; J2250; V2632 ==

== ENCOUNTER 2021-11-24 13:34 | Outpatient (RCR) | payer MEDICARE, BC | END 2021-12-22 | disposition home or self-care (01) | LOC: PT | DX: M43.16 Spondylolisthesis, lumbar region (principal); M48.062 Spinal stenosis, lumbar region with neurogenic claudication ==

== ENCOUNTER → 2021-12-17 | Day surgery (SDC) | payer MEDICARE, BC | END | disposition home or self-care (01) | LOC: MSO 09:58 | DX: H25.11 Age-related nuclear cataract, right eye (principal); G47.33 Obstructive sleep apnea (adult) (pediatric) | CPT/HCPCS: 00142; J0171; J2250; V2632 ==

== ENCOUNTER 2021-12-23 08:00 | Outpatient (RCR) | payer MEDICARE, BC | END 2022-01-21 | disposition still patient (30) | LOC: PT | DX: M43.16 Spondylolisthesis, lumbar region (principal); M48.062 Spinal stenosis, lumbar region with neurogenic claudication ==

== ENCOUNTER → 2021-12-25 | Outpatient (CLI) | payer MEDICARE, BC ==
[~2021-12-25] VITALS: Ht 157.5 cm; Wt 86.7 kg
[2021-12-25 13:46] VITALS: BP 177/74
== END ==
LOC: AMSURD 13:35
DX: Z51.81 Encounter for therapeutic drug level monitoring (principal); Z79.899 Other long term (current) drug therapy
CPT/HCPCS: J3111

== ENCOUNTER → 2022-01-22 | Outpatient (CLI) | payer MEDICARE, BC ==
[~2022-01-22] VITALS: Ht 157.5 cm; Wt 86.7 kg
[2022-01-22 14:33] VITALS: BP 135/55
== END ==
LOC: AMSURD 10:35
DX: Z51.81 Encounter for therapeutic drug level monitoring (principal)
CPT/HCPCS: J3111

== ENCOUNTER → 2022-03-19 | Outpatient (CLI) | payer MEDICARE, BC ==
[~2022-03-19] VITALS: Ht 157.5 cm; Wt 86.7 kg
[2022-03-19 09:13] VITALS: BP 157/84
[2022-03-19 09:27] VITALS: BP 134/84
== END ==
LOC: AMSURD 08:56
DX: Z51.81 Encounter for therapeutic drug level monitoring (principal)
CPT/HCPCS: J3111

== ENCOUNTER → 2022-04-16 | Outpatient (CLI) | payer MEDICARE, BC ==
[~2022-04-16] VITALS: Ht 157.5 cm; Wt 86.7 kg
[2022-04-16 15:31] VITALS: BP 149/69
== END ==
LOC: AMSURD 09:09
DX: Z79.899 Other long term (current) drug therapy (principal)
CPT/HCPCS: J3111

== ENCOUNTER 2022-04-22 08:00 | Outpatient (RCR) | payer MEDICARE, BC | END 2022-05-22 | disposition home or self-care (01) | LOC: PT | DX: M54.51 Vertebrogenic low back pain (principal) ==

== ENCOUNTER → 2022-06-11 | Outpatient (CLI) | payer MEDICARE, BC ==
[~2022-06-11] VITALS: Ht 157.5 cm; Wt 80.0 kg
[2022-06-11 14:26] VITALS: BP 163/80
== END ==
LOC: AMSURD 13:57
DX: Z51.81 Encounter for therapeutic drug level monitoring (principal)
CPT/HCPCS: J3111

== ENCOUNTER 2022-09-23 13:44 | Outpatient (RCR) | payer MEDICARE, BC ==
[~2022-09-23 13:44] MED LIST changes: +CALCIUM CARBON500 M3 PO; +CYCLOBENZ5 MG PO; +FESOTERODINE FUM8 MG PO; +INVANZ1 GM; +MEDROL 4MG DOSPA4 MG PO; +METOPROLOL SUCC25 M1 PO; +NEURONTIN300 MG/CAP PO; +PANTOPRAZOLE SO40 MG PO; +PERCOCET 325 MG1 TA2 PO; +ROXICODONE 55 MG/TAB PO; +TIZANIDINE HYDRO4 MG PO; +TYLENOL325 M1; +VITAMIN E400 UNIT PO; +ZYRTEC ALLERGY10 MG PO
== END 2022-10-22 | disposition home or self-care (01) ==
LOC: PT
DX: T81.89XD Other complications of procedures, not elsewhere classified, subsequent encounter (principal); M43.16 Spondylolisthesis, lumbar region; M48.062 Spinal stenosis, lumbar region with neurogenic claudication; M54.16 Radiculopathy, lumbar region; Z98.1 Arthrodesis status

== ENCOUNTER 2022-10-01 14:15 | Outpatient (RCR) | payer MEDICARE, BC ==
[~2022-10-01] VITALS: Ht 165.1 cm; Wt 81.0 kg
[2022-10-01 14:31] VITALS: BP 131/80
== END 2022-10-22 ==
LOC: AMSURD
DX: T81.41XA Infection following a procedure, superficial incisional surgical site, initial encounter (principal); A49.8 Other bacterial infections of unspecified site
CPT/HCPCS: J3111

== ENCOUNTER → 2022-12-04 | Outpatient (CLI) | payer MEDICARE, BC | LOC: RAD 15:01 | DX: M79.604 Pain in right leg (principal); R26.2 Difficulty in walking, not elsewhere classified; M25.551 Pain in right hip; Z98.1 Arthrodesis status ==

== ENCOUNTER → 2022-12-16 | Outpatient (CLI) | payer MEDICARE, BC | LOC: MAMMO 13:40 | DX: Z12.31 Encounter for screening mammogram for malignant neoplasm of breast (principal) ==

== ENCOUNTER 2022-12-24 07:46 | Outpatient (RCR) | payer MEDICARE, BC | END 2023-01-21 | disposition home or self-care (01) | LOC: PT | DX: T81.89XD Other complications of procedures, not elsewhere classified, subsequent encounter (principal); M43.16 Spondylolisthesis, lumbar region; M48.062 Spinal stenosis, lumbar region with neurogenic claudication; M54.16 Radiculopathy, lumbar region ==

== ENCOUNTER 2023-01-22 08:00 | Outpatient (RCR) | payer MEDICARE, BC | END 2023-02-21 | disposition home or self-care (01) | LOC: PT | DX: T81.89XD Other complications of procedures, not elsewhere classified, subsequent encounter (principal); M43.16 Spondylolisthesis, lumbar region; M48.062 Spinal stenosis, lumbar region with neurogenic claudication; M54.16 Radiculopathy, lumbar region; Z98.1 Arthrodesis status ==

== ENCOUNTER → 2023-01-22 | Outpatient (CLI) | payer MEDICARE, BC | LOC: LAB 14:41 | DX: Z23 Encounter for immunization (principal); M81.0 Age-related osteoporosis without current pathological fracture; M54.16 Radiculopathy, lumbar region; M48.062 Spinal stenosis, lumbar region with neurogenic claudication; T81.41XA Infection following a procedure, superficial incisional surgical site, initial encounter; M62.81 Muscle weakness (generalized); K90.9 Intestinal malabsorption, unspecified; E21.0 Primary hyperparathyroidism; E66.9 Obesity, unspecified; M76.31 Iliotibial band syndrome, right leg; G62.9 Polyneuropathy, unspecified ==

== ENCOUNTER → 2023-04-01 | Outpatient (CLI) | payer MEDICARE, BC ==
[~2023-04-01] VITALS: Ht 165.1 cm; Wt 81.0 kg
[~2023-04-01] MED LIST changes: +Denosumab 60 MG/ML SYRINGE SQ ONE
[2023-04-01 14:32] VITALS: BP 136/77
== END ==
LOC: AMSURD 14:13
DX: M80.00XA Age-related osteoporosis with current pathological fracture, unspecified site, initial encounter for fracture (principal)
CPT/HCPCS: J0897

== ENCOUNTER → 2023-04-21 | Day surgery (SDC) | payer MEDICARE, BC ==
[~2023-04-21] MED LIST changes: +Apraclonidine 1% Ophth Soln 0.1 ML BOTTLE OP SCH; +Balanced Salt Ophth Irrig 15 ML BOTTLE *BULK OP SCH; -Denosumab 60 MG/ML SYRINGE SQ ONE; +Phenylephrine 10% Ophth Soln 5 ML BOTTLE *BULK OP SCH; +Proparacaine 0.5% Ophth Soln 15 ML BOTTLE *BULK OP SCH; +Tropicamide 1% Ophth Soln Bottle *BULK OP SCH
== END | disposition home or self-care (01) ==
LOC: MSO 08:57
DX: H26.492 Other secondary cataract, left eye (principal)

== ENCOUNTER 2023-06-23 08:00 | Outpatient (RCR) | payer MEDICARE, BC ==
[~2023-06-23 08:00] MED LIST changes: -Apraclonidine 1% Ophth Soln 0.1 ML BOTTLE OP SCH; -Balanced Salt Ophth Irrig 15 ML BOTTLE *BULK OP SCH; -Phenylephrine 10% Ophth Soln 5 ML BOTTLE *BULK OP SCH; -Proparacaine 0.5% Ophth Soln 15 ML BOTTLE *BULK OP SCH; -Tropicamide 1% Ophth Soln Bottle *BULK OP SCH
== END 2023-07-23 ==
LOC: PT
DX: Z98.1 Arthrodesis status (principal)

== ENCOUNTER → 2023-09-21 | Outpatient (CLI) | payer MEDICARE, BC ==
[2023-09-21 13:37] LABS: URINE APPEARANCE CLEAR (CLEAR); URINE BILIRUBIN NEGATIVE (NEGATIVE); URINE BLOOD NEGATIVE (NEGATIVE); URINE COLOR YELLOW (YELLOW); URINE GLUCOSE NEGATIVE (NEGATIVE); URINE KETONE NEGATIVE (NEGATIVE); URINE LEUKOCYTE ESTERASE NEGATIVE (NEGATIVE); URINE NITRATE NEGATIVE (NEGATIVE); URINE PROTEIN(semi-quant) NEGATIVE (NEGATIVE)
== END ==
LOC: LAB 10:59
DX: N39.0 Urinary tract infection, site not specified (principal)

== ENCOUNTER 2023-10-27 09:32 | Outpatient (RCR) | payer MEDICARE, BC | END 2023-11-22 | disposition home or self-care (01) | LOC: PT | DX: M54.16 Radiculopathy, lumbar region (principal); Z98.1 Arthrodesis status ==

== ENCOUNTER → 2023-11-11 | Outpatient (CLI) | payer MEDICARE, BC ==
[~2023-11-11] MED LIST changes: +Denosumab 60 MG/ML SYRINGE SQ ONE
[2023-11-11 13:46] VITALS: BP 95/63
== END ==
LOC: AMSURD 13:29
DX: M81.0 Age-related osteoporosis without current pathological fracture (principal)
CPT/HCPCS: J0897

== ENCOUNTER → 2023-12-16 | Outpatient (CLI) | payer MEDICARE, BC ==
[~2023-12-16] MED LIST changes: -Denosumab 60 MG/ML SYRINGE SQ ONE
[2023-12-16 15:07] LABS: BASO # 0.02 K/mm3 (0.02-0.10); EOS # 0.25 K/mm3 (0.04-0.40); EOS % 3.5 % (1.0-5.0); HEMATOCRIT 44.3 % (37.0-47.0); LYMPH# 2.12 K/mm3 (1.50-4.00); MEAN CELL VOLUME 104 fl (78-100); MEAN CORPUSCULAR HEMOGLOBIN 33 pg (27-31); MEAN CORPUSCULAR HGB CONC 32 g/dL (33-37); MEAN PLATELET VOLUME 10.8 fl (7.4-10.4); MONO # 0.42 K/mm3 (0.20-0.80); NEU # 4.35 K/mm3 (1.40-6.50); PLATELET COUNT 175 K/mm3 (130-400); RED BLOOD COUNT 4.28 M/mm3 (4.10-5.30); RED CELL DISTRIBUTION WIDTH 13.4 % (11.5-14.5); WHITE BLOOD COUNT 7.2 K/mm3 (4.8-10.8)
[2023-12-16 15:15] LABS: ALBUMIN 4.2 g/dL (3.4-4.8)
[2023-12-16 15:16] LABS: CALCIUM 9.6 mg/dL (8.3-10.5)
[2023-12-16 15:17] LABS: TOTAL PROTEIN 6.5 g/dL (6.2-8.1)
[2023-12-16 15:19] LABS: TOTAL BILIRUBIN 0.6 mg/dL (0.2-1.2)
[2023-12-16 15:24] LABS: MAGNESIUM 1.98 mg/dL (1.60-2.60)
[2023-12-16 23:52] LABS: PTH,INTACT 27.6 pg/mL (6.6-88.9)
== END ==
LOC: LAB 14:26
PROVIDERS: Internal Medicine
DX: Z12.11 Encounter for screening for malignant neoplasm of colon (principal); I10 Essential (primary) hypertension; E03.9 Hypothyroidism, unspecified; M81.0 Age-related osteoporosis without current pathological fracture; E21.0 Primary hyperparathyroidism; E78.2 Mixed hyperlipidemia; R73.9 Hyperglycemia, unspecified

== ENCOUNTER → 2024-03-15 | Outpatient (CLI) | payer MEDICARE, BC ==
[~2024-03-15] VITALS: Ht 165.1 cm; Wt 81.0 kg
[2024-03-15 16:06] VITALS: BP 147/77
--- NOTE | 2024-03-15 16:47 | NUR ---
PT HERE FOR JARRETT TO THE DORSAL SIDE OF 3RD, 4TH AND 5TH FINGERS ON LEFT HAND. BURN ON 5TH FINGER IS CLOSED WITH NO DRAINAGE NOTED. JARRETT ON 4TH AND 5TH FINGERS ARE OPEN. JARRETT OBTAINED FROM TOUCHING AGAINST A HOT METAL BUCKET SHE WAS USING TO CARRY OUT ASHES FROM HER FIREPLACE. WOUNDS WERE CLEANSED WITH VASHE THEN MEPILEX APPLIED TO 5TH FINGER, XEROFORM AND MEPILEX APPLIED TO 3RD AND 4TH FINGERS. TUBE GAUZE USED TO COVER 3RD AND 4TH FINGERS. SECURED WITH MEDIPORE TAPE. PT WILL RETURN ON WEDNESDAY FOR NEXT DRESSING CHANGE. SEE PROVIDER NOTE FOR MEASUREMENTS. PICTURES TAKEN WITH SIGNED CONSENT ON CHART.
== END ==
LOC: WOUND 15:40
DX: T23.232A Burn of second degree of multiple left fingers (nail), not including thumb, initial encounter (principal)

== ENCOUNTER → 2024-03-17 | Outpatient (CLI) | payer MEDICARE, BC ==
[~2024-03-17] VITALS: Ht 165.1 cm; Wt 81.0 kg
[2024-03-17 07:36] VITALS: BP 126/78
--- NOTE | 2024-03-17 07:43 | NUR ---
PT HERE FOR WOUND CARE TO JARRETT OF 3RD 4TH AND 5TH FINGERS OF LEFT HAND. SHE STATES SHE HAS HAD MINIMAL DRAINAGE. THERE IS LESS SWELLING AND REDNESS TODAY. CLEANED WOUNDS WITH VASHE. APPLIED XEROFORM AND MEPITEL ONE TO EACH WOUND. PT TO KEEP DRESSINGS DRY AND LEAVE DRESSINGS ON UNTIL WEDNESDAY. 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 WILL RETURN ON WEDNESDAY.
== END ==
LOC: WOUND 07:23
DX: T23.232A Burn of second degree of multiple left fingers (nail), not including thumb, initial encounter (principal)

== ENCOUNTER → 2024-03-20 | Outpatient (CLI) | payer MEDICARE, BC ==
[~2024-03-20] VITALS: Ht 165.1 cm; Wt 81.0 kg
[2024-03-20 14:00] VITALS: BP 138/86
--- NOTE | 2024-03-20 14:23 | NUR ---
PATIENT HERE FOR WOUND CARE TO LEFT 3RD, 4TH, AND 5TH FINGERS. PATIENT REMOVED DRESSING REPORTS HAVING TO TAPE THE DRESSING DOWN WITH PAPER TAPE AT HOME. WOUND BEDS CLEASNED WITH VASHE, DRIED WITH 4X4, XEROFORM PLACE ON WOUND BED AND COVERED WITH MEPITAL DRESSING. EXTRA SUPPLIES SENT HOME WITH PATIENT WELL MOVE GLOVES TO COVER HAND WHILE WORKING WITH IT. PATIENT TO RETURN ON WEDNESDAY FOR NEXT DRESSING CHANGE. MEASUREMENTS AND PHOTOGRAPHS TAKEN.
--- NOTE | 2024-03-20 14:27 | NUR ---
MEASUREMENTS FOLLOWS: LEFT 3RD FINGER LENGTH: 0.8CM WIDTH 0.5CM DEPTH <0.2CM LEFT 4TH FINGER LENGTH: 1.5CM WIDTH 0.8CM DEPTH <0.2CM LEFT 5TH FINGER LEGNTH: 0.5CM WIDTH 0.5CM DEPTH <0.2CM
== END ==
LOC: WOUND 13:56
DX: T23.232A Burn of second degree of multiple left fingers (nail), not including thumb, initial encounter (principal)

== ENCOUNTER → 2024-03-24 | Outpatient (CLI) | payer MEDICARE, BC ==
[~2024-03-24] VITALS: Ht 165.1 cm; Wt 81.0 kg
[2024-03-24 08:10] VITALS: BP 157/68
== END ==
LOC: WOUND 08:01
DX: T23.232A Burn of second degree of multiple left fingers (nail), not including thumb, initial encounter (principal)

== ENCOUNTER → 2024-04-19 | Outpatient (CLI) | payer MEDICARE, BC | LOC: MAMMO 13:30 | DX: Z12.31 Encounter for screening mammogram for malignant neoplasm of breast (principal) ==

== ENCOUNTER → 2024-04-21 | Outpatient (CLI) | payer MEDICARE, BC ==
[2024-04-21 15:44] LABS: ALBUMIN 4.5 g/dL (3.4-4.8)
[2024-04-21 15:46] LABS: TOTAL PROTEIN 7.5 g/dL (6.2-8.1)
[2024-04-21 15:48] LABS: TOTAL BILIRUBIN 0.6 mg/dL (0.2-1.2)
[2024-04-21 15:53] LABS: MAGNESIUM 1.95 mg/dL (1.60-2.60)
== END ==
LOC: LAB 15:20
PROVIDERS: Internal Medicine Endocrinology, Diabetes & Metabolism
DX: M81.0 Age-related osteoporosis without current pathological fracture (principal); E89.0 Postprocedural hypothyroidism; Z86.39 Personal history of other endocrine, nutritional and metabolic disease; Z98.890 Other specified postprocedural states; Z90.89 Acquired absence of other organs

== ENCOUNTER → 2024-05-08 | Outpatient (CLI) | payer MEDICARE, BC ==
[~2024-05-08] VITALS: Ht 165.1 cm; Wt 81.0 kg
[~2024-05-08] MED LIST changes: +Denosumab 60 MG/ML SYRINGE SQ ONE
[2024-05-08 14:33] VITALS: BP 151/85
== END ==
LOC: AMSURD 09:54
DX: M19.90 Unspecified osteoarthritis, unspecified site (principal)
CPT/HCPCS: J0897